=== PATIENT | male | born 2000 | race Caucasian/White ===

== ENCOUNTER 2020-01-06 10:21 | Outpatient (REF) | payer MEDICAID, SELFPAY | END 2020-01-06 10:22 | disposition home or self-care (01) | LOC: HO.LAB 10:21 | PROVIDERS: Visit Provider Internal Medicine | DX: Z20.828 Contact with and (suspected) exposure to other viral communicable diseases (principal) | CPT/HCPCS: C9803; U0003 ==

== ENCOUNTER 2020-06-01 13:13 | Outpatient (REF) | payer MEDICAID, SELFPAY ==
[2020-06-01 13:34] LABS: COVID-19 Test Negative (Negative)
== END 2020-06-01 13:14 | disposition home or self-care (01) ==
LOC: HO.LAB 13:13
PROVIDERS: Visit Provider Internal Medicine
DX: Z20.822 Contact with and (suspected) exposure to COVID-19 (principal)
CPT/HCPCS: 36415; 87635; C9803

== ENCOUNTER 2020-06-16 22:16 | Emergency (ER) | payer MEDICAID, SELFPAY ==
--- NOTE | 2020-06-16 | ECG_ITS ---
Test Reason : CP Blood Pressure : / mmHG Vent. Rate : 058 BPM Atrial Rate : 058 BPM P-R Int : 124 ms QRS Dur : 102 ms QT Int : 414 ms P-R-T Axes : 034 044 025 degrees QTc Int : 406 ms Sinus bradycardia Otherwise normal ECG When compared with ECG of 05-MAR-2007 08:54, No significant changes seen Referred By: Generic ED Physician Electronically Signed By:Silver Pearson
--- NOTE | ~2020-06-16 | XR_ITS ---
EXAMINATION: XR CHEST CLINICAL INFORMATION: Chest pain COMPARISON: 06/10/2018 TECHNIQUE: 2 views of the chest were obtained. FINDINGS: No significant abnormality is noted involving the heart, lungs, mediastinum, bony thorax or soft tissues. XR/XR chest 2V IMPRESSION: Unremarkable examination.
[2020-06-16 22:26] VITALS: BP 159/68; PULSE 80; RESP 16; TEMP 36.6; O2SAT 99; BMI 32.5
--- NOTE | 2020-06-17 00:48 | ED_ITS ---
HPI - Chest Pain General Chief Complaint: Chest Pain Stated Complaint: Chest pain Time Seen by Provider: 06/16/20 23:14 Source: patient Mode of arrival: ambulatory Limitations: no limitations History of Present Illness HPI narrative: Patient 20 years old with no significant past medical history or risk factors for coronary disease comes here for chest pain started since 06:00 o'clock patient had similar chest pain multiple times almost once in 2 weeks increased anxiety and stress tried inhaler without any relief pain increases on deep inhalation and palpation MD complaint: chest pain Related Data Allergies Allergy/AdvReac Type Severity Reaction Status Date / Time No Known Allergies Allergy Unverified 11/12/19 17:27 Review of Systems Review of Systems: Constitutional : No Weight loss, No Fever, No Chills ENT/Mouth : No sore throat, No Rhinorrhea Eyes: No Eye Pain, No Swelling Cardiovascular : + Chest Pain, no palpitations Respiratory : No Cough, No Sputum, no shortness of breath Gastrointestinal : no Nausea, No Vomiting, No Diarrhea, No abdominal Pain, no black stools Genitourinary : No Dysuria, No Urinary Frequency Musculoskeletal : No joint pain, No Myalgias, No Joint Swelling Skin : No Skin Lesions, No rash Neuro : No Weakness, No Numbness, No Dizziness, No Headache Psych : +Anxiety/Panic, No Depression Heme/Lymph: No Bruising, No Lymphadenopathy Endocrine : No Polyuria, No Polydipsia All other systems reviewed and are negative [facility] Past Medical History Medical History Asthma Social History Social History Advance Directives: No Physical Exam Vital Signs: Vital Signs: Last Vital Signs Temp 98.5 F 06/17/20 01:35 Pulse 56 06/17/20 01:35 Resp 16 06/17/20 01:35 BP 129/69 06/17/20 01:35 Pulse Ox 99 06/17/20 01:35 Body Mass Index 32.5 Appearance: Alert. Oriented X3. No acute distress. Eyes: Pupils equal, round and reactive to light. ENT: Pharynx normal. Neck: Normal inspection. Neck supple. CVS: Normal heart rate and rhythm. Pulses normal. Anterior chest wall tenderness+ Respiratory: No respiratory distress. Breath sounds normal. Abdomen: Soft and nontender. Bowel sounds are present, no mass palpable, no CVA tenderness Skin: Skin warm and dry. Normal skin color. Normal skin turgor. Extremities: No lower extremity edema. Neuro: Oriented X 3. No motor deficit. No sensory deficit. MDM - Chest Pain MDM Narrative Medical decision making narrative: Patient has atypical chest with normal cardiogram normal high sensitive troponin with no significant risk factor heart score of 0 will discharge patient home Lab Data Attestation: I reviewed the patient's lab results. Labs: Lab Results 06/17/20 Range/Units 01:15 Troponin I High Sens < 3.5 (<3.5-35.0) ng/L ECG Data ECG #1: Attestation: I personally reviewed and interpreted this ECG as follows: Interpretation: Normal sinus rhythm sinus bradycardia heart rate 58 beats per minute no acute ST T wave changes normal intervals normal axis impression no acute ischemia Scores Heart Score History: -0- slightly suspicious ECG: -0- normal Age: -0- < or = 45 Risk factory: -0- no risk factors known Troponin: -0- < or = normal limit Score: 0 Risk: 1.7% Discharge Plan Discharge Clinical Impression: Atypical chest pain Patient Disposition: Home, Self-Care Instructions: Anxiety (ED), Chest Wall Pain (ED) Additional Instructions: Your chest pain is not from the heart, likely from anxiety/musculoskeletal please follow-up with your PCP
[2020-06-17 01:35] VITALS: BP 129/69; PULSE 56; RESP 16; TEMP 36.9; O2SAT 99
[2020-06-17 01:47] LABS: Troponin-I High Sensitivity < 3.5 ng/L (<3.5-35.0)
== END 2020-06-17 02:21 | disposition home or self-care (01) ==
PROVIDERS: Emergency Provider Internal Medicine
DX: R07.89 Other chest pain (principal)
CPT/HCPCS: 36415; 71046; 84484; 93005; 99283

== ENCOUNTER 2020-12-25 12:00 | Emergency (ER) | payer MEDICAID, SELFPAY ==
--- NOTE | ~2020-12-25 | XR_ITS ---
EXAMINATION: XR KNEE, LEFT CLINICAL INFORMATION: Fall COMPARISON: None TECHNIQUE: Four views of the left knee. FINDINGS: Small knee effusion. Normal alignment. No fracture, dislocation or acute osseous abnormality is seen. XR/XR knee LT 4V IMPRESSION: Small knee effusion without acute osseous abnormality demonstrated.
[2020-12-25 12:01] VITALS: BP 128/43; PULSE 86; RESP 16; TEMP 36.7; O2SAT 99; BMI 32.3
[2020-12-25] MEDS: Acetaminophen 325 MG TABLET PO (12:59)
--- NOTE | 2020-12-25 14:36 | ED.LOWEXIN ---
HPI - Extremity Injury (Lower) General Chief Complaint: Extremity Injury, Lower Stated Complaint: FALL AT WORK L KNEE INJ Time Seen by Provider: 12/25/20 14:30 Source: patient Mode of arrival: ambulatory Limitations: no limitations History of Present Illness HPI Narrative: 20-year-old male here with complaints of left knee pain after an injury at work last night. Patient tells me that he slipped on some water causing him to jam his foot into the wall causing a vibration of pain up into his knee. Now has pain over the knee. There was no direct injury to the knee.. He denies any ankle or foot pain. Pain is worsened with weight-bearing. Related Data Allergies Allergy/AdvReac Type Severity Reaction Status Date / Time No Known Allergies Allergy Unverified 11/12/19 17:27 Review of Systems Review of Systems: Yes all other systems are reviewed and are negative Constitutional: Constitutional: Reports no additional constitutional complaints, Denies body ache(s), Denies chills, Denies fever(s), Denies headache(s) and Denies weakness Eyes: Eyes: Reports no additional eye complaints and Denies change in vision ENT: Reports system reviewed and no additional complaints, except as documented, Denies dizziness, Denies headache(s), Denies nasal congestion, Denies nasal discharge and Denies neck pain Cardiovascular: Cardiovascular: Reports no additional cardiovascular complaints, Denies chest pain, Denies leg edema and Denies dyspnea Respiratory: Respiratory: Reports no additional respiratory complaints, Denies cough and Denies dyspnea Gastrointestinal: Gastrointestinal: Reports no additional gastrointestinal complaints, Denies abdominal pain, Denies diarrhea, Denies nausea and Denies vomiting Genitourinary: Genitourinary: Denies urinary incontinence Musculoskeletal: Musculoskeletal: Reports no additional musculoskeletal complaints, Denies back pain, Reports arthralgias, Denies joint swelling, Denies neck pain, Denies numbness and Denies tingling Integumentary/Breasts: Skin/Breast: Reports system reviewed and no additional complaints, except as docu and Denies rash Neurologic: Reports system reviewed and no additional complaints, except as documented, Denies Abnormal speech present, Denies dizziness, Denies headache(s), Denies numbness, Denies tingling and Denies weakness [facility] Past Medical History Attestation statement: The following information was validated with the patient. Source: old records reviewed and nursing notes reviewed Medical History Asthma Social History Social History Advance Directives: Yes Advance Directives Information Provided: Yes Advance Directives on File: No Physical Exam Vital Signs: Vital Signs: Last Vital Signs Temp 98.0 F 12/25/20 12:01 Pulse 86 12/25/20 12:01 Resp 16 12/25/20 12:01 BP 128/43 L 12/25/20 12:01 Pulse Ox 99 12/25/20 12:01 Body Mass Index 32.3 Const: General: cooperative, healthy appearing, comfortable and no acute distress Orientation/consciousness: patient oriented x3 Limitations: no limitations HENMT: Head: Yes normal to inspection Ears: hearing grossly normal bilaterally General nose exam: Normal external nose present Face and sinus: Yes normal facial exam Mouth: Normal oral and palatal mucosa present Throat: Yes posterior oropharynx normal Eyes: General: appearance normal, both eyes and all related structures Pupils: Equal, round and reactive pupils present Neck: Neck: Yes normal visual inspection Chest: Chest palpation & inspection: normal inspection of the chest Resp: Effort & Inspection: normal respiratory effort Auscultation: clear to auscultation bilaterally Cardio: Rate: regular rate Rhythm: regular rhythm Peripheral pulses: Peripheral pulses 2+ throughout GI: Inspection: Yes normal to inspection Palpation (GI): Soft to palpation and nontender Auscultation: normal bowel sounds Back/Spine/Pelvis: Thoracic/Lumbar Spine: thoracic and lumbar spine normal to inspection Skin: General skin exam: no rashes or lesions noted Neuro: General: patient oriented x3, no focal motor deficits and normal sensation to monofilament Cranial nerves: Yes Equal, round and reactive pupils present Cognition (Neuro): normal cognition Speech: No Abnormal speech present Gait exam (Neuro): Normal gait present Motor exam (neuro): 5/5 motor strength present throughout Extrem: Other: Tenderness over the left anterior knee with some mild swelling. No deformity, ecchymosis, warmth. Also some mild tenderness the posterior knee with no obvious abnormality. No tenderness to the calf, foot or ankle with full range of motion. No ligamental laxity. General: Yes normal to inspection Course Course Course Narrative: Injury to left knee from work last night. X-ray show no acute finding. Likely sprain or strain. Will place patient in Turner wrap and given crutches for home. Reviewed worrisome signs and symptoms of when to return to the emergency department. Comfortable discharge home. MDM - Extremity Injury (Lower) Medical Records Attestation: I reviewed the patient's medical records. Lab Data Attestation: I reviewed the patient's lab results. Imaging Data left knee xray: Attestation: I personally reviewed and interpreted this imaging study as follows: Radiologist's impression: [address] [address] XRay Report Signed Patient: Anderson Wang MR#: [id number] : 2000 Acct:[id number] Age/Sex: 20 / M ADM Date: 12/25/20 Loc: HO.ED Attending Dr: Ordering Physician: Generic ED Physician Date of Service: 12/25/20 Procedure(s): XR knee LT 4V Accession Number(s): [id number] cc: Generic ED Physician~ EXAMINATION: XR KNEE, LEFT CLINICAL INFORMATION: Fall? COMPARISON: None? TECHNIQUE: Four views of the left knee. FINDINGS: Small knee effusion. Normal alignment. No fracture, dislocation or acute osseous abnormality is seen.? XR/XR knee LT 4V IMPRESSION: Small knee effusion without acute osseous abnormality demonstrated. ? Procedures Procedure Narrative Procedure Narrative: Turner wrap, crutches Discharge Plan Discharge Clinical Impression: Muscle strain of left knee Patient Disposition: Home, Self-Care Instructions: Knee Sprain (ED) Additional Instructions: Rest, ice, elevation, compression bandage and crutches to limit weight-bearing Motrin 3 times a day as discussed Follow-up with your jobs occupational health Referrals: Dulce Dickson MD [Primary Care Provider] - 2 days (as needed) Stand Alone Forms: Work/School Release
--- NOTE | 2020-12-25 15:16 | PC.NURSE ---
PT WAS FITTED AND PROVIDED CRUTCHES. HE WAS ABLE TO DEMONSTRATE PROPER USE
== END 2020-12-25 15:04 | disposition home or self-care (01) ==
PROVIDERS: Emergency Provider Emergency Medicine; PCP Internal Medicine
DX: S86.912A Strain of unspecified muscle(s) and tendon(s) at lower leg level, left leg, initial encounter (principal); W18.49XA Other slipping, tripping and stumbling without falling, initial encounter; Y93.89 Activity, other specified; Y92.831 Amusement park as the place of occurrence of the external cause; Y99.0 Civilian activity done for income or pay
CPT/HCPCS: 73564; 99283